=== PATIENT | female | born 1970 | race Caucasian/White ===

== ENCOUNTER 2017-11-20 21:56 | Observation (INO) ==
[2017-11-20 22:48] LABS: Basophils % 0.3 %; Eosinophils % 0.2 %; Hematocrit 43.1 % (35.3-44.9); Hemoglobin 14.7 g/dL (11.5-15.4); Immature Granulocytes % 0.4 % (0-4); Lymphocytes % 6.8 %; Mean Corpuscular HGB Conc 34.1 g/dL (31.6-35.5); Mean Corpuscular Hemoglobin 33.4 pg (28.0-33.3); Mean Platelet Volume 9.5 fL (9.4-12.4); Monocytes # 0.7 K/mcL (0.0-1.3); Monocytes % 4.2 %; Neutrophils # 13.5 K/mcL (1.6-8.9); Platelet Count 213 K/mcL (140-400); Red Cell Distribution Width 13.3 % (11.5-14.5); Segmented Neutrophils % 88.1 %
[2017-11-20 22:53] LABS: INR 1.1; Prothrombin Time 11.8 Seconds (9.4-12.1)
--- NOTE | 2017-11-20 22:54 | Emergency Department Note ---
Disposition Clinical Impression: Chest pain Qualifiers: Chest pain type: unspecified Qualified Code(s): R07.9 - Chest pain, unspecified Disposition: Admitted As Inpatient Condition: Good Time of Disposition: 04:29 General Adult HPI - General Chief complaint: ED Chest Pain Stated complaint: Chest Pain Time Seen by Provider: 11/20/17 22:11 Source: patient Mode of arrival: ambulatory Limitations: no limitations Nursing Notes Reviewed: Yes Vital Signs Reviewed: Yes - History of Present Illness HPI Narrative: 47-year-old female with significant past medical history of COPD presenting to the emergency department with chief complaint of chest pain. Patient states for the past 3 days she started having some left shoulder pain which is now radiated into her chest. She also describes the pain radiating up into the left side of her neck. She denies any cardiac history. She does disclose being nauseous and having some vomiting and nonbloody nonbilious this morning. She denies any shortness of breath or sick contacts. Denies headache or dizziness. Pain Scale: 7 - Related Data Home Medications Medication Instructions Recorded Confirmed Albuterol Sulfate [Albuterol 2 puff IH Q4HR PRN 06/04/15 11/21/17 Inhaler] Duloxetine HCl [Cymbalta] 20 mg PO BID 06/04/15 03/02/17 SUMAtriptan [Imitrex] 50 mg PO AD PRN 06/04/15 03/02/17 Mometasone/Formoterol [Dulera 200 2 puff IH BID 02/16/16 03/02/17 Mcg/5 Mcg Inhaler] Aclidinium [place] [Tudorza 400 mcg IH DAILY 04/29/16 11/21/17 Pressair] Quetiapine Fumarate [SEROquel] 25 mg PO HS 12/14/16 03/02/17 Oxygen 1 each .ROUTE AD 03/02/17 11/21/17 Previous Rx's Medication Instructions Recorded PredniSONE [Deltasone] 40 mg PO DAILY #10 tablet 03/02/17 Tramadol HCl [Ultram] 50 mg PO QID #12 tab 03/02/17 Allergies Allergy/AdvReac Type Severity Reaction Status Date / Time naproxen Allergy See Verified 03/02/17 13:02 Comments Oxycodone [From Percocet] Allergy Swelling Verified 03/02/17 13:02 of Lip/Tongue/Throat propranolol Allergy See Verified 03/02/17 13:02 Comments aspirin AdvReac Nausea Verified 03/02/17 13:02 ibuprofen AdvReac See Verified 03/02/17 13:02 Comments All systems ED: reviewed and negative except as stated. Cardiovascular: Reports: chest pain Gastrointestinal: Reports: nausea, vomiting Musculoskeletal: Reports: arthralgia Past Medical History - Past Medical History Attestation: Yes The following information was validated with the patient. Medical history: Reports: asthma, COPD, GERD, hypertension, migraine Surgical history: Reports: hysterectomy Psychiatric history: Reports: anxiety, bipolar, depression QUOTATION CHECKER history: Reports: bilateral tubal ligation - Social History Smoking Status: Former smoker Smokeless Tobacco Status: No Alcohol use: Reports: none Drug use: Reports: none Physical Exam - General Limitations: no limitations General appearance: alert, in no apparent distress - Head Head exam: atraumatic, normocephalic, normal inspection - Eye Eye exam: Present: normal appearance. Absent: scleral icterus, conjunctival injection - ENT ENT exam: normal exam, mucous membranes moist - Neck Neck exam: Present: normal inspection, full ROM. Absent: tenderness, meningismus - Chest Chest inspection: Present: normal inspection, symmetric chest wall rise. Absent : tenderness, rash - Respiratory Respiratory exam: Present: normal lung sounds bilaterally. Absent: respiratory distress, wheezes - Cardiovascular Cardiovascular exam: Present: normal rhythm, tachycardia, normal heart sounds - Abdominal Exam Abdominal exam: Present: soft, Non-Tender. Absent: distention, guarding, rebound - Extremities Exam Extremities exam: Present: normal inspection, full ROM - Neurological Exam Neurological exam: Present: alert, oriented X3 - Psychiatric Psychiatric exam: Present: normal affect, normal mood - Skin Skin exam: Present: warm, intact Course Course Narrative: 47 year old feel presenting to the emergency Department chief complaint of left chest pain. Patient has no cardiac history. Patient is alert and oriented 3 in the room. Mildly tachycardic upon presentation but otherwise vital signs stable. EKG completed did show some minor ST depression in V1 and V2. Patient has never had a cardiac workup. We will perform basic laboratory analysis including troponin and EKG along with chest x-ray. Disposition pending results. Patient agrees with this plan. - Reevaluation(s) Reevaluation #1: Patient's laboratory analysis benign. Chest x-ray cannot rule out bronchitis but no other abnormalities detected. Patient is alert and oriented 3 and room stable vital signs. Due to the changes in patient's EKG and history we will admit the patient for further evaluation for chest pain. Patient agrees with this plan. I spoke with the hospitalist on-call Dr. Roberts who agrees to accept the patient at this time. Vital Signs Temperature 98.3 F 11/20/17 21:59 Pulse Rate 121 11/20/17 21:59 Respiratory Rate 18 11/20/17 21:59 Blood Pressure 112/78 11/20/17 21:59 O2 Sat by Pulse Oximetry 92 11/20/17 21:59 Temperature 98.1 F 11/21/17 04:24 Pulse Rate 96 11/21/17 04:24 Respiratory Rate 16 11/21/17 04:24 Blood Pressure 93/56 11/21/17 04:24 O2 Sat by Pulse Oximetry 93 11/21/17 04:24 Oxygen Delivery Oxygen Delivery Room Air Medical Decision Making - Lab Data Result diagrams: 11/21/17 05:14 11/21/17 05:14 Lab Results 11/20/17 11/20/17 11/20/17 Range/Units 22:30 22:30 22:30 WBC 15.3 H (4.3-11.1) K/mcL RBC 4.40 (3.82-4.97) M/mcL Hgb 14.7 (11.5-15.4) g/dL Hct 43.1 (35.3-44.9) % MCV 98.0 (83.0-100.0) fL MCH 33.4 H (28.0-33.3) pg MCHC 34.1 (31.6-35.5) g/dL RDW 13.3 (11.5-14.5) % Plt Count 213 (140-400) K/mcL MPV 9.5 (9.4-12.4) fL Immature Gran % 0.4 (0-4) % Seg Neutrophils % 88.1 % Lymphocytes % 6.8 % Monocytes % 4.2 % Eosinophils % 0.2 % Basophils % 0.3 % Neutrophils # 13.5 H (1.6-8.9) K/mcL Lymphocytes # 1.0 (0.6-4.6) K/mcL Monocytes # 0.7 (0.0-1.3) K/mcL Eosinophils # 0.0 (0.0-0.6) K/mcL Basophils # 0.0 (0.0-0.2) K/mcL PT 11.8 (9.4-12.1) Seconds INR 1.1 APTT 31.0 (26.0-36.0) Seconds Sodium 137 (136-145) mEq/L Potassium 3.2 L (3.5-5.1) mEq/L Chloride 103 (98-107) mEq/L Carbon Dioxide 25 (23-29) mEq/L BUN 7 (6-20) mg/dL Creatinine 0.62 (0.60-1.20) mg/dL Est GFR ( Amer) > 60 (> 60) Est GFR (Non-Af Amer) > 60 (> 60) BUN/Creatinine Ratio 11 (6-26) Glucose 130 H (70-105) mg/dL Calculated Osmolality 284 (280-300) Calcium 9.9 (8.6-10.3) mg/dL Troponin I < 0.03 (< 0.04) ng/mL - EKG Data EKG #1 EKG attestation: Yes I reviewed and interpreted this EKG. EKG results narrative: Sinus tachycardia. [address] depression noted in V1 and V2. IN interval 140 , QRS 89, QTC 410. Compared to previous EKG shows new ST depression in V1 and V2. Attestation Statement - Attestation Attestation: I examined this patient and my medical decision-making was reviewed with the Resident Physician. I agree with the documented findings, disposition and treatment plan as described except to the extent set forth below. Patient has typical chest pain symptoms. We will admit for ACS rule out. Initial cardiac biomarkers are negative. Patient stable at time of admission.
[2017-11-20 23:09] LABS: BUN/Creatinine Ratio 11 (6-26); Blood Urea Nitrogen 7 mg/dL (6-20); Calcium 9.9 mg/dL (8.6-10.3); Carbon Dioxide 25 mEq/L (23-29); Chloride 103 mEq/L (98-107); Glucose 130 mg/dL (70-105); Osmolality,Calculated 284 (280-300); Potassium 3.2 mEq/L (3.5-5.1); Sodium 137 mEq/L (136-145); Troponin I < 0.03 ng/mL (< 0.04); eGFR For African Americans > 60 (> 60); eGFR For Non-African Americans > 60 (> 60)
[2017-11-20] MEDS ORDERED: Levofloxacin 750 MG/150 ML 750 MG/150 ML BAG IVPB ONE (23:17)
[2017-11-20] MEDS ORDERED: Aspirin 81 MG TAB.CHEW PO ONE (23:31)
[2017-11-21] MEDS ORDERED: 0.9 % Sodium Chloride 500 ML ONE (00:02)
[2017-11-21] MEDS ORDERED: Naloxone 0.4 MG/ML INJ IVP PRN (00:19)
[2017-11-21] MEDS ORDERED: Nitroglycerin 0.4 MG TAB.SUBL SL PRN (00:21)
--- NOTE | 2017-11-21 00:22 | Internal Med History&Physical ---
Date of Encounter: 11/21/17 Time of Encounter: 00:17 Assessment and Plan (1) Chest pain Current visit: No Status: Acute Admitted under observation status. Check lipid panel and A1c. Given EKG changes I will consult with cardiology. Check echocardiogram. Nothing by mouth for now. We will let cardiology decide on whether the patient needs a stress test. Started patient on aspirin 81 mg daily. Sublingual nitroglycerin when necessary. Qualifiers: Chest pain type: unspecified Qualified Code(s): R07.9 - Chest pain, unspecified (2) Abnormal EKG Current visit: Yes Status: Acute Plan as above. (3) Acute bronchitis Current visit: Yes Status: Acute Continue Levaquin. Check respiratory panel. Patient is not hypoxic. She is having nonproductive cough. Nebs when necessary. Qualifiers: Bronchitis organism: unspecified organism Qualified Code(s): J20.9 - Acute bronchitis, unspecified (4) Shoulder pain Current visit: Yes Status: Acute She has some decreased range of motion in that left shoulder. She was not really able to raise her left shoulder fully for me. We will check a shoulder x -ray. Pain control. Qualifiers: Chronicity: unspecified Laterality: left Qualified Code(s): M25.512 - Pain in left shoulder (5) Depression Current visit: Yes Status: Acute Resume home meds. Qualifiers: Depression Type: unspecified Qualified Code(s): F32.9 - Major depressive disorder, single episode, unspecified (6) Hypertension Current visit: No Status: Chronic Says she is to be on medications but not currently. Blood pressure stable. Qualifiers: Hypertension type: essential hypertension Qualified Code(s): I10 - Essential (primary) hypertension (7) DVT prophylaxis Current visit: Yes Status: Acute Heparin subcutaneous Internal Medicine - H&P: HPI Chief complaint: Chest pain Admitted From: Emergency Dept Plans for Post Hospital Care: Home History of present illness: Ms. Garcia is a 47 year old female with history of asthma, hypertension not on any meds currently, bipolar/depression, GERD who comes in with complaints of chest pain. The patient says her chest pain started about a couple days ago on the left side of chest and feels like sharp pain that comes and goes. Mostly radiates to the back. She also reports left shoulder and neck pain for the past 2 weeks or so. Denies any diaphoresis. She reports a nonproductive cough with nausea and subjective fevers. Reports occasional headaches. Denies blurry vision, abdominal pain, constipation, diarrhea, urinary symptoms, or neurological symptoms. She presented to the ED and initial workup showed a WBC count of 15,000s. Rest of labs were mostly remarkable for a potassium of 3.2. Troponins were not elevated. The patient reports a significant history of cardiac disease. She is a former smoker. She never underwent a stress test or cardiac workup. The patient had a chest x-ray in the emergency department showed findings suspicious for acute bronchitis. She was given a dose of Levaquin. The patient is EKG showed findings of some minimal ST depressions in multiple leads including possibly V1, V3, V4 which are new. There is also some ST depressions in the inferior leads but those are hard to discern and may have benefit present previous EKG. The patient while I was evaluating did not have any chest pain. Past Med Surg Social Fam HX - Past Medical History Medical history: asthma, COPD, GERD, hypertension, migraine Psychiatric history: anxiety, bipolar, depression - Past Surgical History Surgical History: hysterectomy - Social History Smoking Status: Former smoker Smokeless Tobacco Status: No Alcohol use: none Drug use: none - Family History Maternal Grandmother Hx Family Cardiac Disorders: Yes Hx Family Cancer: Yes (lung) Maternal Grandfather Hx Family Cardiac Disorders: Yes Internal Medicine - H&P: Meds Albuterol Sulfate [Albuterol Inhaler] 2 puff IH Q4HR PRN 06/04/15 [History] Duloxetine HCl [Cymbalta] 20 mg PO BID 06/04/15 [History] SUMAtriptan [Imitrex] 50 mg PO AD PRN 06/04/15 [History] Mometasone/Formoterol [Dulera 200 Mcg/5 Mcg Inhaler] 2 puff IH BID 02/16/16 [ History] Aclidinium [place] [Tudorza Pressair] 400 mcg IH DAILY 04/29/16 [History] Quetiapine Fumarate [SEROquel] 25 mg PO HS 12/14/16 [History] Oxygen 1 each .ROUTE AD 03/02/17 [History] PredniSONE [Deltasone] 40 mg PO DAILY #10 tablet 03/02/17 [Rx] Tramadol HCl [Ultram] 50 mg PO QID #12 tab 03/02/17 [Rx] 3 Allergy/AdvReac Type Severity Reaction Status Date / Time naproxen Allergy See Verified 03/02/17 13:02 Comments Oxycodone [From Percocet] Allergy Swelling Verified 03/02/17 13:02 of Lip/Tongue/Throat propranolol Allergy See Verified 03/02/17 13:02 Comments aspirin AdvReac Nausea Verified 03/02/17 13:02 ibuprofen AdvReac See Verified 03/02/17 13:02 Comments All Systems PM: A 10-system review of systems was performed and is negative for pertinent findings except as documented above in the HPI. Review of systems: All systems reviewed are negative except as mentioned above - Constitutional Vitals: Temp Pulse Resp BP Pulse Ox 98.3 F 114 18 90/52 91 11/20/17 21:59 11/20/17 23:33 11/20/17 23:33 11/20/17 23:33 11/20/17 23:34 Exam: GEN: NAD HEENT: AT, NC, No cyanosis, oral mucosa is moist, No JVD Lymphatics: No lymphadenoapthy Eyes: Extrocular muscles intact, anicteric CVS:RRR. S1, S2, No m/r/g RESP: CTAB ABD: Soft, NT, ND, +BS EXT: No edema, No rashes, 2+ DP NEURO: Nonfocal, CN II-XII intact, No focal motor or sensory deficits Psych: Cooperative, Not anxious or depressed Internal Med - H&P Results - Labs CBC & Chem 7: 11/20/17 22:30 11/20/17 22:30
[2017-11-21] MEDS: 0.9 % Sodium Chloride 1,000 ML IVC ONE (00:27)
[2017-11-21] MEDS ORDERED: 0.9 % Sodium Chloride 500 ML IVC ONE (00:29)
[2017-11-21] MEDS ORDERED: Ipratropium/Albuterol Neb 3 ML IH PRN (00:45)
[2017-11-21] MEDS: Acetaminophen 325 MG TABLET PO PRN ×2 (01:24→17:05)
[2017-11-21 05:37] LABS: Basophils % 0.2 %; Eosinophils # 0.1 K/mcL (0.0-0.6); Eosinophils % 0.5 %; Hematocrit 38.8 % (35.3-44.9); Immature Granulocytes % 0.4 % (0-4); Lymphocytes # 2.6 K/mcL (0.6-4.6); Lymphocytes % 14.3 %; Mean Corpuscular HGB Conc 33.5 g/dL (31.6-35.5); Mean Corpuscular Hemoglobin 33.2 pg (28.0-33.3); Mean Corpuscular Volume 99.2 fL (83.0-100.0); Mean Platelet Volume 9.7 fL (9.4-12.4); Monocytes # 0.6 K/mcL (0.0-1.3); Monocytes % 3.4 %; Neutrophils # 14.9 K/mcL (1.6-8.9); Platelet Count 231 K/mcL (140-400); Red Blood Count 3.91 M/mcL (3.82-4.97); Red Cell Distribution Width 13.3 % (11.5-14.5); Segmented Neutrophils % 81.2 %
[2017-11-21 05:51] LABS: Chol/HDL Ratio 2.6 (0-4.9)
[2017-11-21 06:00] LABS: BUN/Creatinine Ratio 13 (6-26); Blood Urea Nitrogen 7 mg/dL (6-20); Calcium 9.2 mg/dL (8.6-10.3); Carbon Dioxide 26 mEq/L (23-29); Chloride 106 mEq/L (98-107); Glucose 101 mg/dL (70-105); Magnesium 1.8 mg/dL (1.6-2.6); Osmolality,Calculated 280 (280-300); Potassium 4.6 mEq/L (3.5-5.1); Sodium 136 mEq/L (136-145); eGFR For African Americans > 60 (> 60); eGFR For Non-African Americans > 60 (> 60)
[2017-11-21] MEDS: *HR* Heparin 5,000 UNIT/ML VIAL SQ SCH ×3 (06:06→21:36)
--- NOTE | 2017-11-21 09:03 | Cardiology Consult Note ---
Date of Encounter: 11/21/17 Time of Encounter: 09:00 Assessment and Plan (1) Chest pain Current Visit: Yes Status: Acute Atypical type chest pain however with EKG changes and cardiac risk factors a chemical stress test is reasonable to rule out ischemia. Qualifiers: Chest pain type: unspecified Qualified Code(s): R07.9 - Chest pain, unspecified Discussion w patient/family: The assessment and plan as outlined above was discussed with the patient and/or family members who expressed understanding and agreement. All questions were answered. Thank you for involving us in the care of your patient. Please call with any questions. History of Present Illness Consult date: 11/21/17 Consult reason: Chest Pain Chief complaint: Chest pain History of present illness: Ms. Garcia is a 47 year old female with history of hypertension who presents with atypical type chest pain. She describes it over the left pectoral region radiates to the back and neck which are positional in nature. The chest pain started approximately 2 weeks ago with no associated symptoms. She has also been experiencing a nonproductive cough with fevers and chills. She has hypokalemia and elevated white blood count on presentation her troponins are negative 2. EKG shows diffuse ST changes Her last echocardiogram May 2015 was unremarkable with an ejection fraction of 60% Past Med Surg Social Fam HX - Past Medical History Medical history: asthma, COPD, GERD, hypertension, migraine Psychiatric history: anxiety, bipolar, depression - Past Surgical History Surgical History: hysterectomy - Social History Smoking Status: Former smoker Smokeless Tobacco Status: No Alcohol use: none Drug use: none - Family History Maternal Grandmother Hx Family Cardiac Disorders: Yes Hx Family Cancer: Yes (lung) Maternal Grandfather Living Status: Hx Family Cardiac Disorders: Yes Medications and Allergies Albuterol Sulfate [Albuterol Inhaler] 2 puff IH Q4HR PRN 06/04/15 [History] Duloxetine HCl [Cymbalta] 20 mg PO BID 06/04/15 [History] Mometasone/Formoterol [Dulera 200 Mcg/5 Mcg Inhaler] 2 puff IH BID 02/16/16 [ History] Aclidinium [place] [Tudorza Pressair] 400 mcg IH DAILY 04/29/16 [History] Oxygen 2 l NS DAILY PRN 03/02/17 [History] Roflumilast [Daliresp] 500 mcg PO DAILY 11/21/17 [History] 3 Allergy/AdvReac Type Severity Reaction Status Date / Time naproxen Allergy See Verified 03/02/17 13:02 Comments Oxycodone [From Percocet] Allergy Swelling Verified 03/02/17 13:02 of Lip/Tongue/Throat propranolol Allergy See Verified 03/02/17 13:02 Comments aspirin AdvReac Nausea Verified 03/02/17 13:02 ibuprofen AdvReac See Verified 03/02/17 13:02 Comments All Systems Review: The remainder of the systems were reviewed and are negative Physical Examination Vital Signs, Last 4 Hours Temp Pulse Resp BP Pulse Ox 11/21/17 07:49 99.0 F 96 17 98/60 94 General: Conversant, No Apparent Distress HEENT: Atraumatic, Normocephaly, Mucus Membranes Moist Neck: No JVD, Normal carotid pulses Cardiac: Reg Rate and Rhythm, Normal S1 and S2, No Murmur Lungs: Normal Breath Sounds, No Wheeze, Rales, Rhonchi Neuro: Alert and responsive, No focal deficits noted Abdomen: Soft, Non-Tender Skin: No rashes noted on visualized skin Musculoskeletal: No Chest Wall Tenderness Extremities: No Clubbing, No Cyanosis, No Edema, Normal Pulses Results 11/21/17 05:14 11/21/17 05:14 Lab Results 11/21/17 11/21/17 11/21/17 05:14 05:14 05:14 WBC 18.4 H Hgb 13.0 D Hct 38.8 Plt Count 231 Sodium 136 Potassium 4.6 D Chloride 106 Carbon Dioxide 26 BUN 7 Creatinine 0.52 L Glucose 101 Calcium 9.2 Magnesium 1.8 Troponin I < 0.03 Consult Discharge Plan - Plan Referrals: Yumi Rivera, BASKET PERSON [Primary Care Provider] -
[2017-11-21 09:07] LABS: Estimated Average Glucose 111 mg/dl; Hemoglobin A1C 5.5 %
[2017-11-21 11:16] LABS: Adenovirus Not Detected (Not Detect); Bordetella Pertussis Not Detected (Not Detect); Chlamydophila pneumoniae Not Detected (Not Detect); Coronavirus 229E Not Detected (Not Detect); Coronavirus HKU1 Not Detected (Not Detect); Coronavirus NL63 Not Detected (Not Detect); Coronavirus OC43 Not Detected (Not Detect); Human Metapneumovirus Not Detected (Not Detect); Human Rhinovirus/Enterovirus Not Detected (Not Detect); Influenza A Subtype 2009 H1 Not Detected (Not Detect); Influenza A Untypeable Not Detected (Not Detect); Influenza B Not Detected (Not Detect); Mycoplasma pneumoniae Not Detected (Not Detect); Parainfluenza Virus 1 Not Detected (Not Detect); Parainfluenza Virus 2 Not Detected (Not Detect); Parainfluenza Virus 3 Not Detected (Not Detect); Parainfluenza Virus 4 Not Detected (Not Detect); Respiratory Syncytial Virus Not Detected (Not Detect)
--- NOTE | 2017-11-21 14:22 | Event Note ---
Date of Encounter: 11/21/17 Time of Encounter: 09:45 Patient complaining of cough and shortness of breath. No chest pain at this time. Cardiology evaluated patient and recommended cardiac stress test. Troponins are negative. We will continue Levaquin. Continue duo nebs. Respiratory infection panel was negative.
[2017-11-21] MEDS: Aspirin 81 MG TAB.CHEW PO SCH (14:40)
[2017-11-21] MEDS ORDERED: Levofloxacin 500 MG/100 ML 500 MG/100 ML BAG IVPB SCH (18:00)
[2017-11-21] MEDS ORDERED: 0.9 % Sodium Chloride 250 ML IVC SCH (18:45)
--- NOTE | 2017-11-21 19:40 | Electrocardiograph Report ---
[place] [id number] Test Date: 2017-11-20 Pat Name: Inga Garcia Department: 104 Room: 3B48 Gender: F Coil Winder Hand: : 1970 Requested By: Petey Lindsey Order Number: [id number] Reading MD: Aldair Lisa Measurements Intervals [place] Rate: 121 P: 70 NE: 140 QRS: -9 QRSD: 89 T: 66 QT: 338 QTc: 410 Interpretive Statements SINUS TACHYCARDIA Electronically Signed On 11-21-2017 19:38:33 EDT by Aldair Lisa
[2017-11-22] MEDS: Acetaminophen 325 MG TABLET PO PRN ×2 (02:22→09:11)
[2017-11-22] MEDS: *HR* Heparin 5,000 UNIT/ML VIAL SQ SCH (05:37)
[2017-11-22] MEDS ORDERED: Regadenoson 0.4 MG/5 ML SYRINGE IVP ONE (07:34)
[2017-11-22] MEDS: Aspirin 81 MG TAB.CHEW PO SCH (09:09)
[2017-11-22 09:23] LABS: Basophils % 0.2 %; Eosinophils # 0.1 K/mcL (0.0-0.6); Eosinophils % 0.5 %; Hematocrit 43.2 % (35.3-44.9); Immature Granulocytes % 0.5 % (0-4); Lymphocytes # 1.8 K/mcL (0.6-4.6); Lymphocytes % 18.1 %; Mean Corpuscular HGB Conc 33.8 g/dL (31.6-35.5); Mean Corpuscular Volume 100.5 fL (83.0-100.0); Mean Platelet Volume 9.7 fL (9.4-12.4); Monocytes # 0.3 K/mcL (0.0-1.3); Monocytes % 3.4 %; Neutrophils # 7.8 K/mcL (1.6-8.9); Platelet Count 237 K/mcL (140-400); Red Cell Distribution Width 13.2 % (11.5-14.5); Segmented Neutrophils % 77.3 %
[2017-11-22 09:27] LABS: Hemoglobin 14.6 g/dL (11.5-15.4)
[2017-11-22 09:44] LABS: BUN/Creatinine Ratio 11 (6-26); Blood Urea Nitrogen 5 mg/dL (6-20); Calcium 9.8 mg/dL (8.6-10.3); Carbon Dioxide 28 mEq/L (23-29); Chloride 104 mEq/L (98-107); Glucose 114 mg/dL (70-105); Osmolality,Calculated 284 (280-300); Potassium 3.9 mEq/L (3.5-5.1); Sodium 138 mEq/L (136-145); eGFR For African Americans > 60 (> 60); eGFR For Non-African Americans > 60 (> 60)
[2017-11-22 10:35] VITALS: BP 112/73
[2017-11-22] MEDS: 0.9 % Sodium Chloride 1,000 ML IVC ONE (10:58)
--- NOTE | 2017-11-22 11:07 | Cardiology Progress Note ---
Date of Encounter: 11/22/17 Time of Encounter: 11:00 Assessment and Plan (1) Chest pain Current Visit: Yes Status: Acute Per cardiology: -Atypical type chest pain in the setting of bronchitis. -Denies recurrence of chest pain. -ECG with non-specific ST changes. -Troponins negative x3. -Stress today with perfusion imaging negative for ischemia. -On asa, not on statin LDL 12/06 43. Not on beta tyler due to borderline BP 100s systolic and allergy to propanolol with facial swelling as reaction. -Cardiology will sign off and will follow in outpatient setting. Follow up set. Qualifiers: Chest pain type: unspecified Qualified Code(s): R07.9 - Chest pain, unspecified Discussion w patient/family: The assessment and plan as outlined above was discussed with the patient who expressed understanding and agreement. All questions were answered. Thank you for involving us in the care of your patient. Please call with any questions. Discussed and reviewed with . Subjective Principal diagnosis: bronchitis Interval history: Denies chest pain. Reports cough and shortness of breath. Objective Vital Signs, Last 4 Hours Temp Pulse Resp BP Pulse Ox 11/22/17 10:33 98.5 F 88 18 112/73 11/22/17 09:51 99.5 F 87 14 113/78 96 General: Conversant, No Apparent Distress HEENT: Atraumatic, Normocephaly, Mucus Membranes Moist Neck: No JVD, Normal carotid pulses Cardiac: Reg Rate and Rhythm, Normal S1 and S2, No Murmur Lungs: Other (Lung sounds with rhonchi noted throughout. ) Neuro: Alert and responsive, No focal deficits noted Abdomen: Soft, Non-Tender Skin: No rashes noted on visualized skin Musculoskeletal: No Chest Wall Tenderness Extremities: No Clubbing, No Cyanosis, No Edema, Normal Pulses Results 11/22/17 09:07 11/22/17 09:07 Lab Results Impressions Echocardiogram 11/21/17 00:13 Impressions: LVEF 55-60%. Mild left ventricular diastolic dysfunction. Normal right ventricular structure and function. No significant valvular dysfunction. No pulmonary hypertension. Left Ventricular Wall Motion: Rest Echo Findings All wall segments showed normal motion. Findings: Study Quality * Technically adequate exam. ECG Findings * Normal sinus rhythm. Left Ventricle * LVEF 55-60%. * Normal LV chamber size, wall thickness and function. * Mild left ventricular diastolic dysfunction. Right Ventricle * Normal right ventricular structure and function. Left Atrium * Normal left atrial size. Right Atrium * Normal right atrial size. Mitral Valve * Normal mitral valve structure. * No mitral regurgitation. * No mitral stenosis. Aortic Valve * No aortic regurgitation. * Aortic valve not well visualized. * No aortic stenosis. Tricuspid Valve * No tricuspid regurgitation. * Normal tricuspid valve structure. * No pulmonary hypertension. Pulmonic Valve * Pulmonic valve is not well visualized. * No pulmonic stenosis. * No pulmonic regurgitation. Pulmonary Artery * Pulmonary artery not well visualized. Aorta * Normally sized aortic root. * Ascending aorta not well visualized. Pericardium * There is no pericardial effusion present. Interatrial Septum * No evidence of PFO by color Doppler. IVC * The IVC is not dilated. * Sniff suboptimal. Shoulder X-Ray 11/21/17 00:45 IMPRESSION: No acute abnormality is identified. If patient's pain persists, consider further evaluation with nonemergent MRI. D/ / Nikolai Mcfarlane MD / Nikolai Mcfarlane MD Interpreting Provider: Nikolai Mcfarlane MD Active Medications Acetaminophen (Tylenol) 650 mg PO Q6HR PRN PRN Reason: Mild Pain/Fever Stop: 05/23/18 00:20 Last Admin: 11/22/17 09:11 Dose: 650 mg Albuterol/Ipratropium (Duoneb) 3 ml IH [id number] PRN PRN Reason: Shortness Of Breath/Wheezing Stop: 05/23/18 00:46 Aspirin (Aspirin) 81 mg PO DAILY [facility] Stop: 05/23/18 09:01 Last Admin: 11/22/17 09:09 Dose: 81 mg Heparin Sodium (Porcine) (Heparin) 5,000 unit SQ Q8HCO [facility] Stop: 05/23/18 06:01 Last Admin: 11/22/17 05:37 Dose: 5,000 unit Levofloxacin/Dextrose (Levaquin Premix 500mg/100ml) 500 mg in 100 mls @ 100 mls /hr IVPB DAILY@1800 JOHN PRN Reason: Protocol Stop: 05/23/18 18:01 Last Admin: 11/21/17 18:56 Dose: 100 mls/hr Naloxone HCl (Narcan) 0.4 mg IVP Q2MIN PRN PRN Reason: SEE COMMENTS Stop: 05/23/18 00:20 Nitroglycerin (Nitroglycerin) 0.4 mg SL Q5MIN PRN PRN Reason: Chest Pain Stop: 05/23/18 00:22 Laboratory Tests 11/20/17 11/21/17 11/21/17 22:30 05:14 10:40 Hgb Creatinine Troponin I < 0.03 < 0.03 < 0.03 11/22/17 11/22/17 09:07 09:07 Hgb 14.6 D Creatinine 0.46 L Troponin I - Imaging and Cardiology Chest Xray: report reviewed Stress Test: report reviewed - EKG Interpretation EKG results cardiology: other (Telemetry reviewed with average HR previous 12 hours noted to be 96, SR. PVCs and PACs noted.) Consult Discharge Plan - Plan Referrals: Yumi Rivera, PHYSICAL FITNESS TEACHER [Primary Care Provider] -
--- NOTE | 2017-11-22 12:56 | Discharge Summary ---
- NOTES TO OUTPATIENT PROVIDER Notes to Outpatient Provider: Patient admitted here with bronchitis and chest pain. Stress test negative. Treating bronchitis. She also reports weight loss over the past 7 or 8 months. Would recommend outpatient workup including colonoscopy. Orders not resulted at time of discharge: Pending orders 11/22/17 07:00 NM keisha perf SPECT multi [NM] Routine Date of Encounter: 11/22/17 Time of Encounter: 12:54 - Discharge Diagnosis (1) Acute bronchitis Priority: Primary Status: Acute Qualifiers: Bronchitis organism: unspecified organism Qualified Code(s): J20.9 - Acute bronchitis, unspecified (2) Chest pain Priority: Secondary Status: Acute Qualifiers: Chest pain type: precordial pain Qualified Code(s): R07.2 - Precordial pain (3) Hypertension Priority: Secondary Status: Chronic Qualifiers: Hypertension type: essential hypertension Qualified Code(s): I10 - Essential (primary) hypertension (4) Depression Priority: Secondary Status: Acute Qualifiers: Depression Type: unspecified Qualified Code(s): F32.9 - Major depressive disorder, single episode, unspecified (5) Abnormal EKG Priority: Secondary Status: Acute (6) DVT prophylaxis Priority: Secondary Status: Acute (7) Shoulder pain Priority: Secondary Status: Acute Qualifiers: Chronicity: unspecified Laterality: left Qualified Code(s): M25.512 - Pain in left shoulder Hospital course: Ms. Garcia is a 47 year old female patient with a history of asthma, COPD, hypertension, bipolar disorder, gastroesophageal reflux disease who presented to the ER with complaints of chest pain on the left side of the chest along with pain in her left shoulder and neck. Chest pain had been going on for 2 days prior to presentation. She has also been having some cough and shortness of breath. During evaluation in the ER, she was noted to have some not nonspecific ST segment changes in her EKGs. Given these abnormalities, cardiology was consulted and per their recommendations, patient underwent cardiac stress test today. She was not found to have any reversible ischemia on her stress test. Cardiology does not recommend any further testing at this point. Patient also underwent a 2-D echocardiogram which showed mild left ventricle diastolic dysfunction with an EF of 55-60%. She was treated for acute bronchitis and has improved with treatment for this with Levaquin and bronchodilators. She is clinically stable to be discharged home today and will follow up with her primary care provider. During my discussion with the patient today, she reported weight loss over the past 6-7 months. She has not been worked up for this. I recommend outpatient workup through her primary care provider. This could include colonoscopy, Upper GI endoscopy and possibly even chest CT given her history of smoking. Discharge discussed with: patient - Time Spent with Patient Total time spent providing and/or coordinating discharge services: Less than 30 minutes (25 min) - Discharge Medications Prescriptions: levoFLOXacin [Levaquin] 500 mg PO DAILY #7 tablet predniSONE [PredniSONE] 40 mg PO DAILY #10 tablet Home Medications: Albuterol Sulfate [Albuterol Inhaler] 2 puff IH Q4HR PRN 06/04/15 [History] Duloxetine HCl [Cymbalta] 20 mg PO BID 06/04/15 [History] Mometasone/Formoterol [Dulera 200 Mcg/5 Mcg Inhaler] 2 puff IH BID 02/16/16 [ History] Aclidinium Albia [Tudorza Pressair] 400 mcg IH DAILY 04/29/16 [History] Oxygen 2 l NS DAILY PRN 03/02/17 [History] Roflumilast [Daliresp] 500 mcg PO DAILY 11/21/17 [History] levoFLOXacin [Levaquin] 500 mg PO DAILY #7 tablet 11/22/17 [Rx] predniSONE [PredniSONE] 40 mg PO DAILY #10 tablet 11/22/17 [Rx] Allergies/Adverse Reactions: 3 Allergy/AdvReac Type Severity Reaction Status Date / Time naproxen Allergy See Verified 03/02/17 13:02 Comments Oxycodone [From Percocet] Allergy Swelling Verified 03/02/17 13:02 of Lip/Tongue/Throat propranolol Allergy See Verified 03/02/17 13:02 Comments aspirin AdvReac Nausea Verified 03/02/17 13:02 ibuprofen AdvReac See Verified 03/02/17 13:02 Comments Date of admission: 11/20/17 23:37 Primary care physician: Yumi Rivera Consults: 11/21/17 00:13 Consult to Cardiology [CONS] Routine Comment: Consulting Provider: Cardiology Ernestine Reason for Consult: EKG changes Call Completed: No 11/21/17 00:47 Consult to Nutrition [CONS] Routine Comment: greater than 10lb weight loss in a month Consulting Provider: NUTRITION Reason for Dietary Consult: MST Score Discharging clinician: Daniel Park Anticipated date of discharge: 11/22/17 - Constitutional Vitals: Temp Pulse Resp BP Pulse Ox 98.5 F 88 18 112/73 96 11/22/17 10:33 11/22/17 10:33 11/22/17 10:33 11/22/17 10:33 11/22/17 09:51 General appearance: Present: cooperative, A&O X 3, answers questions appropriately - Respiratory Respiratory exam: Present: CTAB, prolonged expiratory phase. Absent: accessory muscle use, rales, rhonchi, wheezes - Cardiovascular Cardiovascular exam: Present: RRR, +S1, +S2. Absent: diastolic murmur, gallop, rubs, systolic murmur - GI/Abdominal GI/Abdominal exam: Present: normal bowel sounds, soft, no peritoneal signs. Absent: distended, tenderness - Extremities Exam Extremities exam: Present: warm, radial pulses palpable and symmetrical. Absent : calf tenderness, cyanotic, pedal edema - Neurological Exam Neurological exam: Present: alert, CN II-XII intact, oriented X3, no focal deficits. Absent: facial droop, speech deficit - Patient Status Disposition: Home, Self-Care Condition: Good Functional capacity at discharge: independent ambulation Overall status at discharge: patient is back to baseline - Discharge Instructions Instructions: Chest Pain (DC) Follow Up With: Yumi Rivera CNP [Primary Care Provider] - (in 1-2 weeks) - Diet and Activity Activity: increase activity as tolerated Diet: low fat, low cholesterol, low salt diet
== END 2017-11-22 13:38 | disposition home or self-care (01) ==
LOC: 3NENU 21:56 → EMEROO 21:56 → SUATTDRO 23:37 → 3NENU 11-21 00:26 → 3BNU 11-21 07:38
PROVIDERS: ADMIT Internal Medicine; ATTEND Internal Medicine

== ENCOUNTER 2018-02-23 11:42 | Observation (INO) ==
--- NOTE | 2018-02-23 16:36 | Internal Med History&Physical ---
Date of Encounter: 03/02/18 Time of Encounter: 02:35 Internal Medicine - H&P: HPI History of present illness: Ms. Garcia is a 47 year old female who was admitted through emergency department at [place] for intermittent abdominal pain with nausea and vomiting. CAT scan showed possible colitis of sigmoid. Patient started on Bentyl and oral morphine. Started on Cipro and Flagyl. Pain has been unresolved overnight and becoming more severe today. She was transfered to [facility] for further evaluation and treatment due to limited diagnostic ability at this facility and no specialty services, She still C/o abdominal pain and decrease oral intake. Past Med Surg Social Fam HX - Past Medical History Medical history: asthma, COPD, GERD, hypertension, migraine Additional medical history: home o2 Psychiatric history: anxiety, bipolar, depression - Past Surgical History Surgical History: hysterectomy Additional surgical history: t & a, partial hysterectomy - Social History Smoking Status: Current some day smoker Smokeless Tobacco Status: No Alcohol use: none Drug use: none - Family History Maternal Grandmother Hx Family Cardiac Disorders: Yes Hx Family Cancer: Yes (lung) Maternal Grandfather Living Status: Hx Family Cardiac Disorders: Yes Internal Medicine - H&P: Meds Albuterol Sulfate [Albuterol Inhaler] 2 puff IH Q4HR PRN 06/04/15 [History] Oxygen 2 l NS DAILY PRN 03/02/17 [History] Roflumilast [Daliresp] 500 mcg PO DAILY 11/21/17 [History] Omeprazole [PriLOSEC] 40 mg PO DAILY 02/21/18 [History] 3 Allergy/AdvReac Type Severity Reaction Status Date / Time naproxen Allergy See Verified 02/21/18 21:24 Comments Oxycodone [From Percocet] Allergy Swelling Verified 02/21/18 21:24 of Lip/Tongue/Throat propranolol Allergy See Verified 02/21/18 21:24 Comments aspirin AdvReac Nausea Verified 02/21/18 21:24 ibuprofen AdvReac See Verified 02/21/18 21:24 Comments All Systems PM: A 10-system review of systems was performed and is negative for pertinent findings except as documented above in the HPI. - Constitutional Constitutional: no chills, no fever(s), no night sweats - Cardiovascular Cardiovascular ROS IM: no chest pain, no diaphoresis, no dyspnea, no lightheadedness, no palpitations, no syncope - Respiratory Respiratory: no cough, no dyspnea, no wheezing, no excessive phlegm production - Gastrointestinal Gastrointestinal: abdominal pain, nausea, vomiting, no diarrhea, no hematemesis , no hematochezia, no melena - Genitourinary Genitourinary: no change in urinary stream, no dysuria, no flank pain, no hematuria - Constitutional Vitals: Temp Pulse Resp BP Pulse Ox 98.2 F 78 18 106/70 97 02/23/18 14:39 02/23/18 14:39 02/23/18 14:39 02/23/18 14:39 02/23/18 14:39 General appearance: Present: A&O X 3 - Head Head exam: Present: atraumatic, normocephalic - Respiratory Respiratory exam: Present: CTAB. Absent: accessory muscle use, rales, rhonchi, wheezes - Cardiovascular Cardiovascular exam: Present: RRR, +S1, +S2. Absent: diastolic murmur, gallop, rubs, systolic murmur - GI/Abdominal GI/Abdominal exam: Present: normal bowel sounds, soft, no peritoneal signs. Absent: distended, tenderness - Extremities Exam Extremities exam: Present: warm, radial pulses palpable and symmetrical. Absent : calf tenderness, cyanotic, pedal edema - Assessment and plan (1) Abdominal pain Current Visit: No Status: Acute Assessment and plan: intermittent abdominal pain with nausea and vomiting most likely 2/2 to possible colitis of sigmoid. Patient started on Bentyl and oral morphine. Started on Cipro and Flagyl. Pain has been unresolved overnight and becoming more severe today. We will continue ABs, consult GI. Qualifiers: Abdominal location: left lower quadrant Qualified Code(s): R10.32 - Left lower quadrant pain (2) Depression Current Visit: No Status: Acute Qualifiers: Depression Type: unspecified Qualified Code(s): F32.9 - Major depressive disorder, single episode, unspecified (3) Tobacco use disorder Current Visit: No Status: Acute (4) Hypertension Current Visit: No Status: Chronic Qualifiers: Hypertension type: essential hypertension Qualified Code(s): I10 - Essential (primary) hypertension (5) COPD (chronic obstructive pulmonary disease) Current Visit: No Status: Chronic Qualifiers: COPD type: unspecified COPD Qualified Code(s): J44.9 - Chronic obstructive pulmonary disease, unspecified (6) DVT prophylaxis Current Visit: No Status: Acute - Time Spent With Patient Total time spent is greater than 50% in coordination of care (as documented) at patient's floor/unit and/or counseling patient:
[2018-02-23] MEDS ORDERED: Acetaminophen 325 MG TABLET PO PRN (18:11)
[2018-02-23] MEDS ORDERED: Naloxone 0.4 MG/ML INJ IVP PRN (18:11)
[2018-02-23 19:15] LABS: INR 1.1; Prothrombin Time 12.1 Seconds (9.4-12.1)
[2018-02-23 19:18] LABS: Activated Partial Thrombo Time 36.1 Seconds (26.0-36.0)
[2018-02-23] MEDS: *HR* HYDROcodone/Acet 5/325 mg TABLET PO PRN (20:41)
[2018-02-23] MEDS ORDERED: Melatonin 3 MG TABLET PO PRN (22:48)
[2018-02-24] MEDS ORDERED: 0.9 % Sodium Chloride 1,000 ML IVC ONE (05:25)
[2018-02-24 05:48] LABS: Basophils # 0.1 K/mcL (0.0-0.2); Basophils % 0.6 %; Eosinophils # 0.1 K/mcL (0.0-0.6); Eosinophils % 1.6 %; Hematocrit 40.5 % (35.3-44.9); Immature Granulocytes % 0.4 % (0-4); Lymphocytes # 3.2 K/mcL (0.6-4.6); Lymphocytes % 37.5 %; Mean Corpuscular HGB Conc 34.6 g/dL (31.6-35.5); Mean Corpuscular Hemoglobin 34.6 pg (28.0-33.3); Mean Platelet Volume 9.8 fL (9.4-12.4); Monocytes # 0.5 K/mcL (0.0-1.3); Neutrophils # 4.6 K/mcL (1.6-8.9); Platelet Count 266 K/mcL (140-400); Red Blood Count 4.05 M/mcL (3.82-4.97); Red Cell Distribution Width 13.8 % (11.5-14.5); Segmented Neutrophils % 53.9 %
[2018-02-24 06:08] LABS: Alanine Aminotransferase 10 Units/L (7-52); Albumin 3.9 g/dL (3.5-5.7); Alkaline Phosphatase 65 Units/L (34-104); Aspartate Amino Transferase 15 Units/L (13-39); BUN/Creatinine Ratio 15 (6-26); Bilirubin,Total 0.5 mg/dL (0.3-1.0); Blood Urea Nitrogen 5 mg/dL (6-20); Calcium 9.1 mg/dL (8.6-10.3); Carbon Dioxide 22 mEq/L (23-29); Chloride 107 mEq/L (98-107); Glucose 61 mg/dL (70-105); Magnesium 1.7 mg/dL (1.6-2.6); Osmolality,Calculated 281 (280-300); Potassium 3.6 mEq/L (3.5-5.1); Sodium 138 mEq/L (136-145); Total Protein 6.4 g/dL (6.4-8.9); eGFR For African Americans > 60 (> 60); eGFR For Non-African Americans > 60 (> 60)
[2018-02-24 06:09] LABS: Albumin/Globulin Ratio 1.6 (1.1-2.2); Chol/HDL Ratio 3.2 (0-4.9); Cholesterol 128 mg/dL (< 200); Globulin 2.5 g/dL (2.4-3.5); HDL Cholesterol 40 mg/dL (40-59); LDL Cholesterol,Calculated 58 mg/dL (0-99); Triglycerides 148 mg/dL (< 150)
[2018-02-24] MEDS: MetroNIDAZOLE 500 MG/100 ML 500 MG/100 ML BAG IVPB SCH ×2 (07:55→18:11)
[2018-02-24] MEDS: *HR* HYDROcodone/Acet 5/325 mg TABLET PO PRN ×2 (07:57→18:21)
[2018-02-24 08:38] LABS: Bilirubin,Urine Negative (Negative); Blood,Urine Trace (Negative); Clarity,Urine Clear (Clear); Color,Urine Yellow (Yellow); Glucose,Urine (UA) Normal (Normal); Ketones,Urine >=160 mg/dL (Negative); Leukocyte Esterase,Urine Negative (Negative); Nitrite,Urine Negative (Negative); Protein,Urine Trace mg/dL (Neg-Trace); Specific Gravity,Urine 1.024 (1.010-1.025); Urobilinogen,Urine Normal (Normal)
[2018-02-24 08:40] LABS: Bacteria,Urine None Seen per hpf (None-Few); Hyaline Casts,Urine None Seen per lpf (None-Few); RBC,Urine 0-3 per hpf (0-3); Squamous Epithelial Cell,Urine Many per lpf (None-Few); WBC,Urine 0-3 per hpf (0-3)
[2018-02-24] MEDS ORDERED: (Roflumilast [Daliresp] 500 MCG) PO SCH (09:00)
[2018-02-24] MEDS ORDERED: Ondansetron 4 MG/2 ML VIAL IVP PRN (10:02)
--- NOTE | 2018-02-24 18:10 | Internal Med Progress Note ---
Date of Encounter: 02/24/18 Time of Encounter: 10:00 - Assessment and plan (1) Hypertension Current Visit: Yes Status: Chronic Assessment and plan: Chronic, well controlled. Continue home medications. Qualifiers: Hypertension type: essential hypertension Qualified Code(s): I10 - Essential (primary) hypertension (2) COPD (chronic obstructive pulmonary disease) Current Visit: Yes Status: Chronic Assessment and plan: Chronic. No acute exacerbation. Continue home medications, 02 as needed to maintain sats > 92%. Continue Duonebs. Qualifiers: COPD type: unspecified COPD Qualified Code(s): J44.9 - Chronic obstructive pulmonary disease, unspecified (3) Depression Current Visit: Yes Status: Chronic Assessment and plan: Continue home medications. Qualifiers: Depression Type: unspecified Qualified Code(s): F32.9 - Major depressive disorder, single episode, unspecified (4) DVT prophylaxis Current Visit: Yes Status: Acute Assessment and plan: Lovenox SQ (5) Abdominal pain Current Visit: Yes Status: Acute Assessment and plan: Pt with abdominal pain for 2-3 weeks, worse on day of admission. She reports nausea for a year that has become worse over the last few months and overall appetite loss and weight loss for 1 year. Pt reports 80 lb unint[address] weight loss. CT abd/pelvis with mild small volume of free fluid in the pelvis, indeterminant. There seems to be mild sigmoid colonic wall thickening and surrounding inflammatory fat stranding, altogether raising concern for colitis. The appendix is not discretely identified, acute appendicitis cannot be reliably excluded given free fluid. Hepatomegaly is also noted. Continue IV antibiotics, IVF, and clear liquid diet. Monitor labs and vitals GI consulted, not available until Monday, will monitor for need for transfer or surgery if needed. Qualifiers: Abdominal location: left lower quadrant Qualified Code(s): R10.32 - Left lower quadrant pain (6) Tobacco use disorder Current Visit: Yes Status: Acute Assessment and plan: Nicoderm patch prn. - Time Spent With Patient Total time spent is greater than 50% in coordination of care (as documented) at patient's floor/unit and/or counseling patient: less than 15 minutes - Subjective Interval history: Pt was seen and assessed at bedside at 1000. Pt appears frail and as if she doesn't feel well and reports that she has had decreased appetite/appetite loss for over a year. She reports that she has had nausea for 1 year and over the last 2-3 months has become worse. She reports that she has had abdominal pain on and off for 2-3 weeks, became worse on her day of presentation to the emergency department. She reports her family was concerned that she was vomiting and could not walk due to severe abdominal pain. Patient also reports that she has had an 80 pound weight loss in 1 year, unintentional. She reports mid abdominal pain after eating the last 2-3 weeks. - Constitutional Vitals: Temp Pulse Resp BP Pulse Ox 98.0 F 81 18 124/77 96 02/24/18 15:51 02/24/18 15:51 02/24/18 15:51 02/24/18 15:51 02/24/18 15:51 General appearance: Present: A&O X 3, pleasant, no acute distress, answers questions appropriately - Head Head exam: Present: atraumatic, normal inspection, normocephalic - Eye Eye exam: Present: normal appearance, conjuntiva pink, sclera anicteric - Neck Neck exam general surgery: Present: normal inspection, supple, trachea midline. Absent: lymphadenopathy, tenderness - Respiratory Respiratory exam: Present: CTAB. Absent: accessory muscle use, rales, rhonchi, wheezes - Cardiovascular Cardiovascular exam: Present: RRR, +S1, +S2. Absent: diastolic murmur, gallop, rubs, systolic murmur - GI/Abdominal GI/Abdominal exam: Present: normal bowel sounds, soft. Absent: distended, hepatomegaly, tenderness - Extremities Exam Extremities exam: Present: normal capillary refill, normal inspection, warm, radial pulses palpable and symmetrical. Absent: calf tenderness, cyanotic, pedal edema, tenderness - Neurological Exam Neurological exam: Present: alert, oriented X3, no focal deficits. Absent: facial droop, speech deficit - Skin Skin exam: Present: dry, intact, normal color, warm. Absent: rash Internal Medicine: Result - Labs CBC & Chem 7: 02/24/18 05:25 02/24/18 05:25 Labs: Short CBC 02/24/18 Range/Units 05:25 WBC 8.5 (4.3-11.1) K/mcL Hgb 14.0 (11.5-15.4) g/dL Hct 40.5 (35.3-44.9) % Plt Count 266 (140-400) K/mcL Neutrophils # 4.6 (1.6-8.9) K/mcL BMP 02/24/18 05:25 Sodium 138 Potassium 3.6 Chloride 107 Carbon Dioxide 22 L BUN 5 L Creatinine 0.33 L Glucose 61 L Calcium 9.1 Liver Function 02/24/18 Range/Units 05:25 Total Bilirubin 0.5 (0.3-1.0) mg/dL AST 15 (13-39) Units/L ALT 10 (7-52) Units/L Alkaline Phosphatase 65 (34-104) Units/L Albumin 3.9 (3.5-5.7) g/dL Urine 02/24/18 Range/Units 08:29 Urine Color Yellow (Yellow) Urine Clarity Clear (Clear) Urine pH 6.0 (5.0-8.0) pH Units Ur Specific [place] 1.024 (1.010-1.025) Urine Protein Trace (Neg-Trace) mg/dL Urine Glucose (UA) Normal (Normal) mg/dL - ABG Interpretation ABG results: PT/INR, D-dimer PT 12.1 Seconds (9.4-12.1) 02/23/18 18:46 Consult Discharge Plan - Plan Referrals: Yumi Rivera, LEOLA [Primary Care Provider] -
[2018-02-24] MEDS ORDERED: Nicotine 14 MG PATCH.TD24 TD PRN (18:31)
[2018-02-24] MEDS: Ipratropium/Albuterol Neb 3 ML IH SCH ×2 (19:44→23:35)
[2018-02-25] MEDS: MetroNIDAZOLE 500 MG/100 ML 500 MG/100 ML BAG IVPB SCH (00:10)
[2018-02-25] MEDS: Ipratropium/Albuterol Neb 3 ML IH SCH ×2 (03:30→07:47)
[2018-02-25 05:07] LABS: Basophils % 0.5 %; Eosinophils # 0.1 K/mcL (0.0-0.6); Eosinophils % 1.2 %; Hematocrit 36.3 % (35.3-44.9); Immature Granulocytes % 0.4 % (0-4); Lymphocytes # 3.6 K/mcL (0.6-4.6); Lymphocytes % 43.4 %; Mean Corpuscular HGB Conc 34.2 g/dL (31.6-35.5); Mean Corpuscular Hemoglobin 33.8 pg (28.0-33.3); Mean Corpuscular Volume 98.9 fL (83.0-100.0); Mean Platelet Volume 10.1 fL (9.4-12.4); Monocytes # 0.5 K/mcL (0.0-1.3); Monocytes % 5.7 %; Platelet Count 232 K/mcL (140-400); Red Blood Count 3.67 M/mcL (3.82-4.97); Red Cell Distribution Width 13.6 % (11.5-14.5); Segmented Neutrophils % 48.8 %
[2018-02-25 05:08] LABS: Hemoglobin 12.4 g/dL (11.5-15.4)
[2018-02-25 05:25] LABS: BUN/Creatinine Ratio 11 (6-26); Blood Urea Nitrogen 4 mg/dL (6-20); Calcium 9.1 mg/dL (8.6-10.3); Carbon Dioxide 29 mEq/L (23-29); Chloride 108 mEq/L (98-107); Glucose 94 mg/dL (70-105); Osmolality,Calculated 291 (280-300); Potassium 2.8 mEq/L (3.5-5.1); Sodium 142 mEq/L (136-145); eGFR For African Americans > 60 (> 60); eGFR For Non-African Americans > 60 (> 60)
[2018-02-25] MEDS ORDERED: *HR* Enoxaparin 40 MG/0.4 ML SYRINGE SQ SCH (07:00)
[2018-02-25 08:16] VITALS: BP 128/81
--- NOTE | 2018-02-25 15:54 | Discharge Summary ---
- NOTES TO OUTPATIENT PROVIDER Notes to Outpatient Provider: pt signed out AMA, pt was hypokalemic and refused to have labs redrawn or to have k rider. Will need labs checked and pt needs GI follow up. Date of Encounter: 02/25/18 Time of Encounter: 08:55 - Discharge Diagnosis (1) Hypertension Priority: Secondary Status: Chronic Assessment and Plan: Continue home medications. Qualifiers: Hypertension type: essential hypertension Qualified Code(s): I10 - Essential (primary) hypertension (2) COPD (chronic obstructive pulmonary disease) Priority: Secondary Status: Chronic Assessment and Plan: No acute exacerbation. Qualifiers: COPD type: unspecified COPD Qualified Code(s): J44.9 - Chronic obstructive pulmonary disease, unspecified (3) Depression Priority: Secondary Status: Chronic Assessment and Plan: Chronic. Continue home medications. Qualifiers: Depression Type: unspecified Qualified Code(s): F32.9 - Major depressive disorder, single episode, unspecified (4) DVT prophylaxis Priority: Secondary Status: Acute Assessment and Plan: Patient was ambulatory in the room. (5) Abdominal pain Priority: Secondary Status: Acute Assessment and Plan: Pt with abdominal pain for 2-3 weeks, worse on day of admission. She reports nausea for a year that has become worse over the last few months and overall appetite loss and weight loss for 1 year. Pt reports 80 lb unint[address] weight loss. CT abd/pelvis with mild small volume of free fluid in the pelvis, indeterminant. There seems to be mild sigmoid colonic wall thickening and surrounding inflammatory fat stranding, altogether raising concern for colitis. The appendix is not discretely identified, acute appendicitis cannot be reliably excluded given free fluid. Hepatomegaly is also noted. 02/25- Pt states that she feels better and does not want to stay for GI consult, continue IV therapy, or for any other evaluation. GI consulted, not available until Monday, Qualifiers: Abdominal location: left lower quadrant Qualified Code(s): R10.32 - Left lower quadrant pain (6) Tobacco use disorder Priority: Secondary Status: Acute Assessment and Plan: Nicoderm patch prn. Hospital course: Ms. Garcia is a 47 year old female with past medical history of COPD, hypertension , depression, tobacco abuse. Patient presented with approximately 1 year history of nausea, vomiting, diarrhea. Patient signed out AGAINST MEDICAL ADVICE today. She appeared to be agitated at discharge but would not discuss what had made her upset other than she said she is not crazy. I asked her what happened she said that she had hurt the nurses in the hallway discussing that she was crazy. Patient was aware of her hypokalemia and was aware of potential complications and risks with hypokalemia, she declined to stay. She declined to stay for GI evaluation tomorrow. She states that she was feeling better and she wanted to go home. Her was at bedside, neither patient or would make eye contact, it was a very awkward interaction. At the end of conversation, patient states that she already has an appointment with GI next month and she will just keep that appointment. To this point, I was unaware of her pending appointment with GI. Patient signed out AGAINST MEDICAL ADVICE. - Time Spent with Patient Total time spent providing and/or coordinating discharge services: - Discharge Medications Home Medications: Albuterol Sulfate [Albuterol Inhaler] 2 puff IH Q4HR PRN 06/04/15 [History] Oxygen 2 l NS DAILY PRN 03/02/17 [History] Roflumilast [Daliresp] 500 mcg PO DAILY 11/21/17 [History] Omeprazole [PriLOSEC] 40 mg PO DAILY 02/21/18 [History] Meloxicam [Mobic] 15 mg PO DAILY 02/24/18 [History] Allergies/Adverse Reactions: 3 Allergy/AdvReac Type Severity Reaction Status Date / Time naproxen Allergy See Verified 02/21/18 21:24 Comments Oxycodone [From Percocet] Allergy Swelling Verified 02/21/18 21:24 of Lip/Tongue/Throat propranolol Allergy See Verified 02/21/18 21:24 Comments aspirin AdvReac Nausea Verified 02/21/18 21:24 ibuprofen AdvReac See Verified 02/21/18 21:24 Comments Date of admission: 02/23/18 13:31 Primary care physician: Yumi Rivera Consults: 02/24/18 05:27 Consult to Gastroenterology [CONS] Routine Consulting Provider: Gastroenterology Ernestine Reason for Consult: Abdominal pain Call Completed: No Discharging clinician: Iman Smith Anticipated date of discharge: 02/25/18 - Constitutional Vitals: Temp Pulse Resp BP Pulse Ox 98.4 F 84 16 128/81 97 02/25/18 08:15 02/25/18 08:15 02/25/18 08:15 02/25/18 08:15 02/25/18 08:15 General appearance: Present: A&O X 3, pleasant, no acute distress, answers questions appropriately - Patient Status Disposition: Left Against Medical Advice Condition: Good Functional capacity at discharge: independent ambulation Overall status at discharge: patient is back to baseline - Discharge Instructions Follow Up With: Yumi Rivera, [employer]IST [Primary Care Provider] - - VTE Documentation of Mechanical Device: Graduated compression elastic hosiery
== END 2018-02-25 09:11 | disposition left against medical advice (07) ==
LOC: INTOOBSV 13:31 → 3BNU 13:31
PROVIDERS: ADMIT Student in an Organized Health Care Education/Training Program; ATTEND Student in an Organized Health Care Education/Training Program